=== PATIENT | male | born 1955 | race Caucasian/White ===

== ENCOUNTER 2019-10-20 12:08 | Inpatient (IN) | payer MEDICARE, BC ==
[2019-10-20 12:34] VITALS: BMI 31.6
--- NOTE | 2019-10-20 13:27 | HP ---
CIWA Score Nausea/Vomitin-No Nausea/No Vomiting Muscle Tremors: 1-None Visible, but [place] Anxiety: 1-Mildly Anxious Agitation: 0-Normal Activity Paroxysmal Sweats: 1-Minimal Palms Moist Orientation: 0-Oriented Tacttile Disturbances: 0-None Auditory Disturbances: 0-None Visual Disturbances: 0-None Headache: 0-None Present (Low score due to recent alcohol use.) CIWA-Ar Total Score: 3 - Admission Criteria OASAS Guidelines: Admission for Medically Managed Detox: Requires at least one of the followin. CIWA greater than 12 2. Seizures within the past 24 hours 3. Delirium tremens within the past 24 hours 4. Hallucinations within the past 24 hours 5. Acute intervention needed for co occurring medical disorder 6. Acute intervention needed for co occurring psychiatric disorder 7. Severe withdrawal that cannot be handled at a lower level of care (continued vomiting, continued diarrhea, abnormal vital signs) requiring intravenous medication and/or fluids 8. Admitting History and Physical - Admission History of Present Illness: 63 year old male with alcohol dependence intoxication. He was here in 2011 and completed detox. His last detox at [place] in [facility] last year completed and then went to outpatient in [facility] for intensive outpatient group. He graduated from there and then relapsed. He is now drinking 1/5 dinah and 1/5 hard liquor daily, last drink today He also uses marijuana usually with drinking. He also uses cocaine sporadically, last 6 months $600 in total PMH: HTN Psych: Schizoaffective Disorder, but since relapsing hasn't taken meds. Meds: Depakote, Trazadone, He lives in mental health assisted environment History Source: Patient Limitations to Obtaining History: No Limitations - Past Medical History Cardiovascular: Yes: HTN Psych: Yes: Other (schizoaffective disorder) - Past Surgical History Past Surgical History: Yes: None - Smoking History Smoking history: Current every day smoker Have you smoked in the past 12 months: Yes Aproximately how many cigarettes per day: 20 - Alcohol/Substance Use Hx Alcohol Use: Yes - Social History Usual Living Arrangement: Yes: Assisted Living Do you think of yourself as: Straight/Heterosexual ADL: Independent Occupation: unemployed History of Recent Travel: No Admission ROS S - HPI Allergies/Adverse Reactions: Allergies Allergy/AdvReac Type Severity Reaction Status Date / Time Penicillins Allergy Verified 10/20/19 12:16 Exam Limitations: No Limitations - Ebola screening Have you traveled outside of the country in the last 21 days: No Have you had contact with anyone from an Ebola affected area: No Have you been sick,other than usual withdrawal symptoms: No Do you have a fever: No - Review of Systems Constitutional: No Symptoms Reported EENT: reports: No Symptoms Reported Respiratory: reports: No Symptoms reported Cardiac: reports: No Symptoms Reported GI: reports: No Symptoms Reported : reports: No Symptoms Reported Musculoskeletal: reports: No Symptoms Reported Integumentary: reports: No Symptoms Reported Neuro: reports: No Symptoms reported Endocrine: reports: No Symptoms Reported Hematology: reports: No Symptoms Reported Psychiatric: reports: Judgement Intact, Mood/Affect Appropiate, Orientated x3 Other Systems: Reviewed and Negative Patient History - Patient Medical History Hx Anemia: No Hx Asthma: No Hx Chronic Obstructive Pulmonary Disease (COPD): No Hx Cancer: No Hx Cardiac Disorders: No Hx Congestive Heart Failure: No Hx Hypertension: Yes Hx Hypercholesterolemia: No Hx Pacemaker: No HX Cerebrovascular Accident: No Hx Seizures: No Hx Dementia: No Hx Diabetes: No Hx Gastrointestinal Disorders: No Hx Liver Disease: No Hx Genitourinary Disorders: No Hx Sexually Transmitted Disorders: No Hx Renal Disease (ESRD): No Hx Thyroid Disease: No Hx Human Immunodeficiency Virus (HIV): No Hx Hepatitis C: No Hx Depression: Yes Hx Suicide Attempt: No Hx Bipolar Disorder: Yes Hx Schizophrenia: Yes - Patient Surgical History Past Surgical History: No Hx Neurologic Surgery: No Hx Cataract Extraction: No Hx Cardiac Surgery: No Hx Lung Surgery: No Hx Breast Surgery: No Hx Breast Biopsy: No Hx Abdominal Surgery: No Hx Appendectomy: No Hx Cholecystectomy: No Hx Genitourinary Surgery: No Hx Orthopedic Surgery: No Anesthesia Reaction: No - PPD History Previous Implant?: Yes Documented Results: Positive w/o proof Implanted On Prior R Admission?: No Date: 10/05/15 Results: positive PPD to be Administered?: No - Smoking Cessation Smoking history: Current every day smoker Have you smoked in the past 12 months: Yes Aproximately how many cigarettes per day: 20 Hx Chewing Tobacco Use: No Initiated information on smoking cessation: Yes 'Breaking Loose' booklet given: 10/20/19 - Substances abused Alcohol Substance route: Oral Frequency: Daily Amount used: fifth of olivia Age of first use: 13 Date of last use: 10/19/19 Cocaine Substance route: Smoking Frequency: 1-3 times last 30 days Amount used: $200 Age of first use: 28 Date of last use: 08/10/19 Marijuana/Hashish Substance route: Smoking Frequency: Daily Amount used: minimal shares blunts Age of first use: 17 Date of last use: 10/19/19 Admission Physical Exam [facility] - Vital Signs Vital Signs: Vital Signs - 24 hr 10/20/19 12:28 Temperature 98.3 F Pulse Rate 94 H Respiratory 20 Rate Blood Pressure 175/105 H - Physical General Appearance: Yes: Alcohol on Breath, Tremorous, Irritable, Sweating, Anxious HEENTM: Yes: EOMI, Hearing grossly Normal, Normal ENT Inspection, Normocephalic , Normal Voice, HAIM, Pharynx Normal, Tm's normal Respiratory: Yes: Chest Non-Tender, Lungs Clear, Normal Breath Sounds, No Respiratory Distress, No Accessory Muscle Use Neck: Yes: No masses,lesions,Nodules, Supple, Trachea in good position Breast: Yes: Within Normal Limits Cardiology: Yes: Regular Rhythm, S1, S2, Tachycardia Abdominal: Yes: Normal Bowel Sounds, Non Tender, Soft, Protuberent. No: Tenderness Genitourinary: Yes: Within Normal Limits Back: Yes: Normal Inspection Musculoskeletal: Yes: full range of Motion, Gait Steady, Pelvis Stable Extremities: Yes: Normal Capillary Refill, Normal Inspection, Normal Range of Motion, Non-Tender Neurological: Yes: frame wirer II-XII NML intact, Fully Oriented, Alert, Motor Strength 5/5, Normal Mood/Affect, Normal Response Integumentary: Yes: Normal Color, Warm Lymphatic: Yes: Within Normal Limits - Diagnostic (1) Alcohol dependence with intoxication Current Visit: Yes Status: Acute (2) Essential hypertension Current Visit: Yes Status: Active (3) bipolar disorder Current Visit: Yes Status: Active (4) hypercholesterolemia Current Visit: Yes Status: Active Cleared for Admission [facility] - Detox or Rehab [facility] Level of Care: Medically Managed Detox Regimen/Protocol: Librium Claeared for Rehab Admission: No Screened but not Admitted - Documentation of Visit Screened but not Admitted: No Breathalyzer - Breathalyzer Breathalyzer: 0.034 Urine Drug Screen - Test Device Lot number: [id number] Expiration date: 04/28/21 - Control Is test valid?: Yes - Results Drug screen NEGATIVE: No Urine drug screen results: THC-Marijuana Inpatient Rehab Admission - Rehab Decision to Admit Inpatient rehab admission?: No
[2019-10-20] MEDS ORDERED: MENTHOL/PHENOL 1 EACH UD MM PRN (13:37)
[2019-10-20] MEDS ORDERED: ACETAMINOPHEN 325 MG TABLET (FP) PO PRN ×2 (13:37)
[2019-10-20] MEDS ORDERED: MELATONIN 5 MG TABLETS PO PRN (13:37)
[2019-10-20] MEDS ORDERED: MAG HYDROX/AL HYDROX/SIMETH 30 ML UNIT-DOSE CUP PO PRN (13:37)
[2019-10-20] MEDS ORDERED: BISMUTH SUBSALICYLATE 262 MG/15 ML BTL PO PRN (13:37)
[2019-10-20] MEDS ORDERED: hydrOXYzine PAMOATE 25 MG CAPSULE (FP) PO PRN (13:37)
[2019-10-20] MEDS ORDERED: MAGNESIUM HYDROX 2400MG/30ML ORAL SUSPENSION 30 ML CUP PO PRN (13:37)
[2019-10-20] MEDS ORDERED: ALBUTEROL SO4 HFA INHALER IH PRN (13:37)
[2019-10-20] MEDS ORDERED: IBUPROFEN 400 MG TABLET (FP) PO PRN (13:37)
[2019-10-20] MEDS ORDERED: MAGNESIUM CITRATE 300 ML BOTTLE PO PRN (13:37)
[2019-10-20] MEDS ORDERED: chlordiazePOXIDE HCL 25 MG CAPSULE PO PRN (13:37)
[2019-10-20] MEDS ORDERED: METHOCARBAMOL 500 MG TABLET PO PRN (13:37)
[2019-10-20] MEDS ORDERED: PNEUMOC 13-VAL CONJ-DIP CRM/PF 0.5 ML DISP.SYRIN IM ONE (14:14)
[2019-10-20] MEDS: METOPROLOL TARTRATE 25 MG TABLET (FP) PO SCH ×2 (14:50→22:34)
[2019-10-20] MEDS: ASPIRIN 81 MG CHEWABLE TABLETS PO SCH (14:51)
[2019-10-20] MEDS: TAMSULOSIN HCL 0.4 MG CAP PO SCH (14:51)
[2019-10-20] MEDS: ENALAPRIL MALEATE 10 MG TABLET (FP) PO SCH (14:51)
[2019-10-20] MEDS: chlordiazePOXIDE HCL 25 MG CAPSULE PO SCH ×2 (17:17→22:35)
[2019-10-20 17:47] LABS: HEMOGLOBIN 13.9 GM/dL (11.7-16.9); MCH 30.6 pg (25.7-33.7); MCHC 33.9 g/dl (32.0-35.9); MEAN CELL VOLUME 90.1 fl (80-96); MEAN PLT VOLUME 8.1 fl (7.5-11.1); PLATELET COUNT 202 K/MM3 (134-434); RBC 4.55 M/mm3 (4.00-5.60); RDW 15.8 % (11.9-15.9); WHITE BLOOD COUNT 6.6 K/mm3 (4.0-10.0)
[2019-10-20 17:58] LABS: ALBUMIN 3.9 g/dl (3.4-5.0); BILIRUBIN,TOTAL 0.6 mg/dL (0.2-1); BLOOD UREA NITROGEN 15.2 mg/dL (7-18); CALCIUM 8.7 mg/dL (8.5-10.1); CREATININE 0.7 mg/dL (0.55-1.3); POTASSIUM 3.8 mmol/L (3.5-5.1); TOT PROT 7.4 g/dl (6.4-8.2)
[2019-10-20] MEDS ORDERED: ATORVASTATIN CA 10 MG TABLET (FP) PO SCH (22:00)
[2019-10-20] MEDS ORDERED: THIAMINE HCL 100 MG TABLET (FP) PO SCH (22:00)
[2019-10-21] MEDS ORDERED: FLU VACCINE QUAD 60 MCG/0.5 ML (MDV 19-20) IM ONE (06:15)
[2019-10-21] MEDS: chlordiazePOXIDE HCL 25 MG CAPSULE PO SCH ×3 (07:41→17:10)
[2019-10-21] MEDS ORDERED: PRENATAL VITAMINS W/ FOLIC ACID TABLET (FP) PO SCH (10:00)
[2019-10-21] MEDS ORDERED: NICOTINE 14 MG/24 HOURS TOPICAL PATCH TD SCH (10:00)
[2019-10-21] MEDS: ASPIRIN 81 MG CHEWABLE TABLETS PO SCH (10:13)
[2019-10-21] MEDS: TAMSULOSIN HCL 0.4 MG CAP PO SCH (10:13)
--- NOTE | 2019-10-21 11:15 | CONSULT ---
[facility] Psychiatric Consult - Data Date of interview: 10/21/19 Psychiatric History: Patient approached at bedside. He appears very angry and told marketing writer:"I don't want to see you"
[2019-10-21] MEDS ORDERED: PNEUMOCOCCAL 23 VACCINE 0.5 ML VIAL IM ONE (12:00)
[2019-10-21] MEDS ORDERED: PNEUMOC 13-VAL CONJ-DIP CRM/PF 0.5 ML DISP.SYRIN IM ONE (12:00)
--- NOTE | 2019-10-21 12:21 | PN ---
[facility] CIWA - CIWA Score Nausea/Vomitin-No Nausea/No Vomiting Muscle Tremors: 3 Anxiety: 3 Agitation: 3 Paroxysmal Sweats: 2 Orientation: 0-Oriented Tacttile Disturbances: 0-None Auditory Disturbances: 0-None Visual Disturbances: 0-None Headache: 0-None Present CIWA-Ar Total Score: 11 S Progress Note (SOAP) Subjective: irritable agitation sweats interrupted sleep Objective: 10/21/19 12:20 Vital Signs Temperature 97.9 F 10/21/19 11:31 Pulse Rate 60 10/21/19 11:31 Respiratory Rate 19 10/21/19 11:31 Blood Pressure 115/75 10/21/19 11:31 O2 Sat by Pulse Oximetry (%) Laboratory Tests 10/20/19 10/20/19 10/20/19 14:55 14:55 14:55 WBC 6.6 RBC 4.55 Hgb 13.9 Hct 41.0 MCV 90.1 MCH 30.6 MCHC 33.9 RDW 15.8 Plt Count 202 MPV 8.1 Sodium 141 Potassium 3.8 Chloride 109 H Carbon Dioxide 24 Anion Gap 8 BUN 15.2 Creatinine 0.7 Est GFR (CKD-EPI)AfAm 115.59 Est GFR (CKD-EPI)NonAf 99.73 Random Glucose 85 Calcium 8.7 Total Bilirubin 0.6 AST 32 ALT 33 Alkaline Phosphatase 76 Total Protein 7.4 Albumin 3.9 RPR Titer Nonreactive aaox3 ambulating no acute distress Assessment: 10/21/19 12:20 withdrawals Plan: continue detox increase fluids
[2019-10-21] MEDS: METOPROLOL TARTRATE 25 MG TABLET (FP) PO SCH (14:01)
[2019-10-21] MEDS: ENALAPRIL MALEATE 10 MG TABLET (FP) PO SCH (14:01)
[2019-10-21 18:13] VITALS: BP 111/71; PULSE 61; TEMP 97.9
--- NOTE | 2019-10-21 21:39 | DS ---
[facility] Detox Discharge Summary Admission Date: 10/20/19 Discharge Date: 10/21/19 (Pt left AMA) - History Present History: Alcohol Dependence, Cannabis Dependence, Cocaine Dependence Additional Comments: As per H&P: "63 year old male with alcohol dependence intoxication. He was here in 2011 and completed detox. His last detox at [place] in [facility] last year completed and then went to outpatient in [facility] for intensive outpatient group. He graduated from there and then relapsed. He is now drinking 1/5 dinah and 1/5 hard liquor daily, last drink today. He also uses marijuana usually with drinking. He also uses cocaine sporadically, last 6 months $600 in total". Pt left AMA. Pt did not complete the detox protocol. Pt states, "I just want to go home". An attempt to let pt stay and complete the detox protocol failed. Pt is encouraged to follow-up with an outpatient CD program and also to follow-up with his pmd. Pt was adamant with information given. Pt is alert and oriented x3 and in no acute respiratory distress. Pertinent Past History: H/o HTN, alcohol, cocaine, and cannabis use disorder. - Physical Exam Results Vital Signs: Vital Signs Temperature 97.9 F 10/21/19 18:10 Pulse Rate 61 10/21/19 18:10 Respiratory Rate 18 10/21/19 18:10 Blood Pressure 111/71 10/21/19 18:10 O2 Sat by Pulse Oximetry (%) Vital Signs 10/21/19 18:10 Temperature 97.9 F Pulse Rate 61 Respiratory 18 Rate Blood Pressure 111/71 Laboratory Last Values WBC 6.6 K/mm3 (4.0-10.0) 10/20/19 14:55 RBC 4.55 M/mm3 (4.00-5.60) 10/20/19 14:55 Hgb 13.9 GM/dL (11.7-16.9) 10/20/19 14:55 Hct 41.0 % (35.4-49) 10/20/19 14:55 MCV 90.1 fl (80-96) 10/20/19 14:55 MCH 30.6 pg (25.7-33.7) 10/20/19 14:55 MCHC 33.9 g/dl (32.0-35.9) 10/20/19 14:55 RDW 15.8 % (11.9-15.9) 10/20/19 14:55 Plt Count 202 K/MM3 (134-434) 10/20/19 14:55 MPV 8.1 fl (7.5-11.1) 10/20/19 14:55 Sodium 141 mmol/L (136-145) 10/20/19 14:55 Potassium 3.8 mmol/L (3.5-5.1) 10/20/19 14:55 Chloride 109 mmol/L (98-107) H 10/20/19 14:55 Carbon Dioxide 24 mmol/L (21-32) 10/20/19 14:55 Anion Gap 8 MMOL/L (8-16) 10/20/19 14:55 BUN 15.2 mg/dL (7-18) 10/20/19 14:55 Creatinine 0.7 mg/dL (0.55-1.3) 10/20/19 14:55 Est GFR (CKD-EPI)AfAm 115.59 10/20/19 14:55 Est GFR (CKD-EPI)NonAf 99.73 10/20/19 14:55 Random Glucose 85 mg/dL (74-106) 10/20/19 14:55 Calcium 8.7 mg/dL (8.5-10.1) 10/20/19 14:55 Total Bilirubin 0.6 mg/dL (0.2-1) 10/20/19 14:55 AST 32 U/L (15-37) 10/20/19 14:55 ALT 33 U/L (13-61) 10/20/19 14:55 Alkaline Phosphatase 76 U/L (45-117) 10/20/19 14:55 Total Protein 7.4 g/dl (6.4-8.2) 10/20/19 14:55 Albumin 3.9 g/dl (3.4-5.0) 10/20/19 14:55 RPR Titer Nonreactive (NONREACTIVE) 10/20/19 14:55 Labs noted. Pertinent Admission Physical Exam Findings: withdrawal symptoms. - Treatment Hospital Course: Detox Protocol Followed - Medication Discharge Medications: Ambulatory Orders Aspirin [ASA -] 81 mg PO DAILY 05/06/12 Atorvastatin Ca [Lipitor] 10 mg PO HS 05/06/12 Enalapril Maleate 10 mg PO DAILY 05/06/12 Metoprolol Tartrate [Lopressor -] 25 mg PO BID 05/06/12 Albuterol Sulfate Inhaler - [Ventolin Hfa Inhaler -] 1 - 2 inh PO QID PRN Benztropine Mesylate [Cogentin -] 1 mg PO DAILY 10/20/19 Divalproex [Depakote -] 250 mg PO DAILY 10/20/19 Tamsulosin HCl 0.4 mg PO DAILY 10/20/19 - Diagnosis (1) Essential hypertension Current Visit: Yes Status: Chronic (2) hypercholesterolemia Current Visit: Yes Status: Active (3) Alcohol dependence Current Visit: No Status: Active (4) Sedative dependence Current Visit: No Status: Active - AMA Did Patient Leave Against Medical Advice: Yes
[2019-10-22] MEDS ORDERED: chlordiazePOXIDE HCL 25 MG CAPSULE PO SCH (05:00)
[2019-10-23] MEDS ORDERED: chlordiazePOXIDE HCL 10 MG CAPSULE PO PRN
[2019-10-23] MEDS ORDERED: chlordiazePOXIDE HCL 10 MG CAPSULE PO SCH (05:00)
[2019-10-24] MEDS ORDERED: chlordiazePOXIDE HCL 10 MG CAPSULE PO SCH (05:00)
[2019-10-25] MEDS ORDERED: chlordiazePOXIDE HCL 10 MG CAPSULE PO ONE (05:00)
== END 2019-10-21 21:36 | disposition left against medical advice (07) | DRG 894 ==
LOC: EDBD → YASAS 12:08 → Y6N 14:01
PROVIDERS: ADMIT Allergy & Immunology; ATTEND Allergy & Immunology
PROC: HZ2ZZZZ Detoxification Services for Substance Abuse Treatment (ICD-10-PCS; principal; 2019-10-20)
DX: F10.230 Alcohol dependence with withdrawal, uncomplicated (principal); F14.10 Cocaine abuse, uncomplicated; F12.20 Cannabis dependence, uncomplicated; F17.210 Nicotine dependence, cigarettes, uncomplicated; F25.9 Schizoaffective disorder, unspecified; F32.9 Major depressive disorder, single episode, unspecified; I10 Essential (primary) hypertension; E78.00 Pure hypercholesterolemia, unspecified; Z88.0 Allergy status to penicillin; Z59.0 Homelessness
CPT/HCPCS: 36415; 71046-TC-FY; 80053; 85027; 86593

== ENCOUNTER 2021-07-24 14:47 | Inpatient (IN) | payer MEDICARE, OTHER ==
[2021-07-24] MEDS ORDERED: IBUPROFEN 400 MG TABLET (FP) PO PRN (18:00)
[2021-07-24] MEDS ORDERED: MAGNESIUM CITRATE 300 ML BOTTLE PO PRN (18:00)
[2021-07-24] MEDS ORDERED: ACETAMINOPHEN 325 MG TABLET (FP) PO PRN ×2 (18:00)
[2021-07-24] MEDS ORDERED: MAGNESIUM HYDROX 2400MG/30ML ORAL SUSPENSION 30 ML CUP PO PRN (18:00)
[2021-07-24] MEDS ORDERED: hydrOXYzine PAMOATE 25 MG CAPSULE (FP) PO PRN (18:00)
[2021-07-24] MEDS ORDERED: ONDANSETRON *ODT* 4 MG TABLET SL PRN (18:00)
[2021-07-24] MEDS ORDERED: BISMUTH SUBSALICYLATE 524 MG/30 ML PO PRN (18:00)
[2021-07-24] MEDS ORDERED: MAG HYDROX/AL HYDROX/SIMETH 30 ML UNIT-DOSE CUP PO PRN (18:00)
[2021-07-24] MEDS ORDERED: MENTHOL/PHENOL 1 EACH UD MM PRN (18:00)
[2021-07-24] MEDS ORDERED: diazePAM 5 MG TABLET PO PRN (18:09)
[2021-07-24 19:04] VITALS: BMI 30.8
[2021-07-24] MEDS ORDERED: ALBUTEROL SO4 HFA INHALER IH PRN (21:05)
[2021-07-24] MEDS ORDERED: MELATONIN 5 MG TABLETS PO SCH (22:00)
[2021-07-24] MEDS: THIAMINE HCL 100 MG TABLET (FP) PO SCH (22:01)
[2021-07-24] MEDS: ATORVASTATIN CA 10 MG TABLET (FP) PO SCH (22:01)
[2021-07-24] MEDS: diazePAM 5 MG TABLET PO SCH (22:02)
[2021-07-24] MEDS: levETIRAcetam 250 MG TABLET PO SCH (22:02)
[2021-07-25] MEDS: diazePAM 5 MG TABLET PO SCH ×4 (05:43→22:36)
[2021-07-25 10:54] LABS: HEMATOCRIT 36.3 % (35.4-49); HEMOGLOBIN 12.2 GM/dL (11.7-16.9); MCH 31.3 pg (25.7-33.7); MCHC 33.7 g/dl (32.0-35.9); MEAN CELL VOLUME 92.9 fl (80-96); MEAN PLT VOLUME 8.2 fl (7.5-11.1); PLATELET COUNT 129 10^3/uL (134-434); RDW 14.6 % (11.9-15.9); WHITE BLOOD COUNT 4.9 K/mm3 (4.0-10.0)
[2021-07-25 11:00] LABS: ALBUMIN 2.9 g/dl (3.4-5.0); BLOOD UREA NITROGEN 20.7 mg/dL (7-18); CALCIUM 8.2 mg/dL (8.5-10.1)
[2021-07-25 11:05] LABS: BILIRUBIN,TOTAL 0.4 mg/dL (0.2-1)
[2021-07-25] MEDS: levETIRAcetam 250 MG TABLET PO SCH ×2 (11:33→22:36)
[2021-07-25] MEDS: NICOTINE 7 MG/24 HOURS TOPICAL PATCH TD SCH (11:33)
[2021-07-25] MEDS: PRENATAL VITAMINS W/ FOLIC ACID TABLET (FP) PO SCH (11:34)
[2021-07-25] MEDS: METHOCARBAMOL 500 MG TABLET PO PRN (16:52)
[2021-07-25] MEDS: BENZTROPINE MESYLATE 1 MG TABLET PO SCH (22:35)
[2021-07-25] MEDS: traZODone HCL 50 MG TABLET (FP) PO SCH (22:36)
[2021-07-25] MEDS: ATORVASTATIN CA 10 MG TABLET (FP) PO SCH (22:36)
[2021-07-25] MEDS: DIVALPROEX SODIUM 500 MG TABLET E.C. PO SCH (22:36)
[2021-07-25] MEDS: THIAMINE HCL 100 MG TABLET (FP) PO SCH (22:36)
[2021-07-26] MEDS: diazePAM 5 MG TABLET PO SCH ×3 (05:35→22:22)
[2021-07-26] MEDS: METHOCARBAMOL 500 MG TABLET PO PRN (10:43)
[2021-07-26] MEDS: PRENATAL VITAMINS W/ FOLIC ACID TABLET (FP) PO SCH (10:43)
[2021-07-26] MEDS: BENZTROPINE MESYLATE 1 MG TABLET PO SCH ×2 (10:44→22:22)
[2021-07-26] MEDS: levETIRAcetam 250 MG TABLET PO SCH ×2 (10:45→22:21)
[2021-07-26] MEDS: NICOTINE 7 MG/24 HOURS TOPICAL PATCH TD SCH (10:51)
[2021-07-26] MEDS: LACTULOSE 20 GM/30 ML UDC (FOR ORAL USE ONLY) PO SCH ×2 (14:36→22:20)
[2021-07-26] MEDS: ATORVASTATIN CA 10 MG TABLET (FP) PO SCH (22:21)
[2021-07-26] MEDS: THIAMINE HCL 100 MG TABLET (FP) PO SCH (22:21)
[2021-07-26] MEDS: DIVALPROEX SODIUM 500 MG TABLET E.C. PO SCH (22:21)
[2021-07-26] MEDS: traZODone HCL 50 MG TABLET (FP) PO SCH (22:22)
[2021-07-27] MEDS: LACTULOSE 20 GM/30 ML UDC (FOR ORAL USE ONLY) PO SCH ×2 (06:26→13:00)
[2021-07-27] MEDS: diazePAM 5 MG TABLET PO SCH ×2 (06:26→18:57)
[2021-07-27] MEDS: PRENATAL VITAMINS W/ FOLIC ACID TABLET (FP) PO SCH (10:39)
[2021-07-27] MEDS: BENZTROPINE MESYLATE 1 MG TABLET PO SCH (10:39)
[2021-07-27] MEDS: levETIRAcetam 250 MG TABLET PO SCH (10:40)
[2021-07-27] MEDS: NICOTINE 7 MG/24 HOURS TOPICAL PATCH TD SCH (10:45)
[2021-07-27 13:54] VITALS: BP 121/77; PULSE 99; TEMP 98.2
[2021-07-28] MEDS ORDERED: diazePAM 5 MG TABLET PO ONE (06:00)
== END 2021-07-27 19:43 | disposition left against medical advice (07) | DRG 894 ==
LOC: YASAS 14:47 → Y6N 20:35
PROVIDERS: ADMIT Allergy & Immunology; ATTEND Allergy & Immunology
PROC: HZ2ZZZZ Detoxification Services for Substance Abuse Treatment (ICD-10-PCS; principal; 2021-07-24)
DX: F10.230 Alcohol dependence with withdrawal, uncomplicated (principal); F11.10 Opioid abuse, uncomplicated; F17.210 Nicotine dependence, cigarettes, uncomplicated; F25.9 Schizoaffective disorder, unspecified; F31.9 Bipolar disorder, unspecified; F19.24 Other psychoactive substance dependence with psychoactive substance-induced mood disorder; I10 Essential (primary) hypertension; J44.9 Chronic obstructive pulmonary disease, unspecified; Z59.01 Sheltered homelessness; Z88.0 Allergy status to penicillin
CPT/HCPCS: 36415; 80053; 80164; 82140; 85027; 86780; C9803; U0003; U0005